=== PATIENT | male | born 1985 | race American Indian/Alaskan Native ===

== ENCOUNTER 2018-01-19 16:27 | Emergency (ER) | payer SELFPAY ==
[2018-01-19] MEDS ORDERED: HALDOL IM STA (17:00)
--- NOTE | 2018-01-19 17:02 | Emergency Department Report ---
ED General Adult HPI - General Chief complaint: Abdominal Pain Stated complaint: ABD PAIN Time Seen by Provider: 01/19/18 16:59 Source: patient, RN notes reviewed Mode of arrival: Ambulatory Limitations: No Limitations - History of Present Illness Initial comments: This is a 33-year-old male. The patient is not known to this provider previously. He reports a past medical history of HIV, indicates he is not on highly active antiretroviral therapy secondary to medication insurance issues, does not know CD4 count, does not know viral load, believes that he also has a history of GERD, gastritis, possible irritable bowel syndrome He presents to the ER with sharp stabbing epigastric pain that radiates down to his bilateral lower quadrants. Started a few hours ago. It is constant. It increases with palpation. It decreases with rest. There is nausea, there is no testicular pain, no urinary symptoms. There is no hematemesis of bright red blood per rectum. There is no chest pain. There is no shortness of breath. -: Gradual Location: abdomen Radiation: abdomen, periumbillical Quality: burning, stabbing, aching Consistency: constant Improves with: medication Worsens with: movement Associated Symptoms: loss of appetite, malaise, nausea/vomiting, weakness. denies: confusion, chest pain, cough, diaphoresis, fever/chills, headaches, rash , seizure, shortness of breath, syncope - Related Data Previous Rx's Medication Instructions Recorded Last Taken Type Acetaminophen [Tylenol Arthritis] 650 mg PO Q6HR PRN #30 tablet.er 01/19/18 Unknown Rx Dicyclomine [Bentyl] 10 mg PO QID PRN #20 capsule 01/19/18 Unknown Rx Ondansetron [Zofran Odt] 4 mg PO Q8HR PRN #20 tab.rapdis 01/19/18 Unknown Rx Promethazine [Phenergan SUPPOS] 50 mg RI Q6H PRN #20 supp.rect 01/19/18 Unknown Rx Allergies Allergy/AdvReac Type Severity Reaction Status Date / Time morphine Allergy Hives Verified 01/19/18 16:31 ED Review of Systems ROS: Stated complaint: ABD PAIN Other details as noted in HPI Comment: All other systems reviewed and negative ED Past Medical Hx - Past Medical History Additional medical history: peptic ulcer. IBS - Surgical History Past Surgical History?: No - Social History Smoking Status: Never Smoker Substance Use Type: None - Medications Home Medications: Home Medications Medication Instructions Recorded Confirmed Last Taken Type Acetaminophen [Tylenol Arthritis] 650 mg PO Q6HR PRN #30 tablet.er 01/19/18 Unknown Rx Dicyclomine [Bentyl] 10 mg PO QID PRN #20 capsule 01/19/18 Unknown Rx Ondansetron [Zofran Odt] 4 mg PO Q8HR PRN #20 tab.rapdis 01/19/18 Unknown Rx Promethazine [Phenergan SUPPOS] 50 mg RI Q6H PRN #20 supp.rect 01/19/18 Unknown Rx ED Physical Exam - General Limitations: No Limitations General appearance: alert, in distress - Head Head exam: Present: atraumatic, normocephalic - Eye Eye exam: Present: normal appearance, EOMI. Absent: nystagmus - ENT ENT exam: Present: normal exam, normal orophraynx, mucous membranes moist, normal external ear exam - Neck Neck exam: Present: normal inspection, full ROM - Respiratory Respiratory exam: Present: normal lung sounds bilaterally. Absent: respiratory distress - Cardiovascular Cardiovascular Exam: Present: regular rate, normal rhythm, normal heart sounds. Absent: bradycardia, tachycardia, irregular rhythm, systolic murmur, diastolic murmur, rubs, gallop - GI/Abdominal GI/Abdominal exam: Present: soft, tenderness, normal bowel sounds, other (there is epigastric tenderness. There is lower abdominal tenderness.). Absent: distended, guarding, rebound, rigid, pulsatile mass - Rectal Rectal exam: Present: normal inspection (escorted by nurse Nieves Frazier) - exam: Present: normal inspection, other (there is no testicular tenderness. There is normal testicular lie bilaterally. There is normal cremasteric reflex bilaterally.). Absent: testicular tenderness External exam: Present: normal external exam, other (escorted by nurse Nieves Frazier) - Extremities Exam Extremities exam: Present: normal inspection, full ROM, normal capillary refill. Absent: pedal edema, joint swelling, calf tenderness - Back Exam Back exam: Present: normal inspection, full ROM. Absent: tenderness, CVA tenderness (R), paraspinal tenderness, vertebral tenderness - Neurological Exam Neurological exam: Present: alert, oriented X3, CN II-XII intact, other ( Extraocular movements intact. Tongue midline. No facial droop. Facial sensation intact to light touch in the V1, V2, V3 distribution bilaterally. 5 and 5 strength in 4 extremities.. Sensation is intact to light touch in 4 extremities.). Absent: motor sensory deficit - Psychiatric Psychiatric exam: Present: anxious - Skin Skin exam: Present: warm, dry, intact, normal color. Absent: rash ED Course Vital Signs 01/19/18 01/19/18 16:31 19:01 Temperature 99 F Pulse Rate 70 86 Respiratory 22 16 Rate Blood Pressure 135/91 Blood Pressure 135/96 [Left] O2 Sat by Pulse 98 99 Oximetry - Reevaluation(s) Reevaluation #1: 01/19/18 19:10 Differential diagnosis, including but not limited to: GERD, gastritis, cyclic vomiting syndrome, pancreatitis, perforated viscus, irritable bowel syndrome Assessment and plan: 33-year-old male, HIV positive, reports IBS, diffuse abdominal pain, no historical features to suggest cannabinoid hyperemesis syndrome or narcotic bowel syndrome. Reports he gets hives and itching with morphine, but denies history of anaphylactic or anaphylactoid reactions. He will be treated with Haldol for his pain, hydromorphone, lidocaine, we will check basic laboratory studies, CAT scan, give nausea medicine, reassess. Reevaluation #2: 01/19/18 19:[address] scan negative for acute surgical disease. Patient will be discharged with nonnarcotic pain medication, nausea medication, instructions to follow up with outpatient gastroenterology, as well as infectious disease. Reevaluation #3: 01/19/18 19:56 Belly soft on repeat exam. Patient feels improved. Tolerating liquids. Patient will be discharged. ED Medical Decision Making - Lab Data Result diagrams: 01/19/18 17:32 01/19/18 17:32 Vital Signs 01/19/18 01/19/18 16:31 19:01 Temperature 99 F Pulse Rate 70 86 Respiratory 22 16 Rate Blood Pressure 135/91 Blood Pressure 135/96 [Left] O2 Sat by Pulse 98 99 Oximetry Lab Results 01/19/18 01/19/18 01/19/18 Range/Units 17:32 17:32 18:41 WBC 9.0 (4.5-11.0) K/mm3 RBC 5.76 H (3.65-5.03) M/mm3 Hgb 14.1 (11.8-15.2) gm/dl Hct 44.2 (35.5-45.6) % MCV 77 L (84-94) fl MCH 25 L (28-32) pg MCHC 32 (32-34) % RDW 15.7 H (13.2-15.2) % Plt Count 216 (140-440) K/mm3 Sodium 143 (137-145) mmol/L Potassium 4.0 (3.6-5.0) mmol/L Chloride 101.4 (98-107) mmol/L Carbon Dioxide 29 (22-30) mmol/L Anion Gap 17 mmol/L BUN 11 (9-20) mg/dL Creatinine 1.1 (0.8-1.5) mg/dL Estimated GFR > 60 ml/min BUN/Creatinine Ratio 10 % Glucose 113 H (75-100) mg/dL Calcium 9.7 (8.4-10.2) mg/dL Total Bilirubin 0.40 (0.1-1.2) mg/dL AST 30 (5-40) units/L ALT 23 (7-56) units/L Alkaline Phosphatase 63 (35-129) units/L Total Protein 8.2 (6.3-8.2) g/dL Albumin 4.5 (3.9-5) g/dL Albumin/Globulin Ratio 1.2 % Lipase 22 (13-60) units/L Urine Bilirubin Neg (Negative) Urine RBC (Auto) 1.0 (0.0-6.0) /HPF - EKG Data -: EKG Interpreted by Me EKG shows normal: sinus rhythm, axis, intervals, QRS complexes, ST-T waves Rate: normal - EKG Data When compared to previous EKG there are: previous EKG unavailable Interpretation: normal EKG 01/19/18 19:12 Sinus, 74 bpm, normal axis, normal intervals, high left ventricular voltage, incomplete right bundle branch block, abnormal EKG, not a stemi - Radiology Data Radiology results: report reviewed, image reviewed interpreted by me: X-ray of the chest is negative for acute disease Print Report Referring Physician: NETTE FRAUSTO Patient Name: RHONDA ALEXIS Date of : 1985 Sex: Male Report Date: 2018-01-19 Report Status: Finalized Findings [facility] [address] [place] [address] Cat Scan Report Signed Patient: RHONDA ALEXIS MR#: [id number] : 1985 Acct:[id number] Age/Sex: 33 / M ADM Date: 01/19/18 Loc: ED Attending Dr: Ordering Physician: NETTE FRAUSTO MD Date of Service: 01/19/18 Procedure(s): CT abdomen pelvis w con Accession Number(s): [id number] cc: NETTE FRAUSTO MD FINAL REPORT EXAM: CT ABDOMEN PELVIS W CON HISTORY: abd pain n/v COMPARISON: None available. TECHNIQUE: Contiguous axial images were obtained. Additional sagittal and coronal reformatted images were obtained. Administration of IV contrast given per institution protocol. Images submitted for interpretation. 100 cc Omnipaque 300. FINDINGS: Lung bases are clear. Exam is somewhat limited by patient motion through the upper to mid abdomen. Liver, spleen, pancreas and adrenal glands are grossly unremarkable. No calcified gallstones or biliary dilatation. No solid renal lesion or hydronephrosis. No perinephric fat stranding. Aorta and IVC are normal in caliber. Urinary bladder and prostate gland are grossly unremarkable. No free fluid or lymphadenopathy in the pelvic cavity. Moderate stool within the majority the colon. Partial visualization of the appendix measuring 5 millimeters in diameter (series 2, image 124). Visualized portions the appendix normal in caliber. There is several fluid-filled small bowel loops in the pelvis concerning for mild enteritis given the patient's history. No bowel obstruction. Lumbar vertebral body heights are preserved. Bony pelvis is grossly intact. IMPRESSION: Findings concerning for mild enteritis. Several fluid-filled small bowel loops in the pelvis. No bowel obstruction. Moderate stool within the majority the colon. Visualized portions the appendix are normal in caliber. No other gross acute findings. Transcribed By: LMA Dictated By: SHAMIR GERONIMO MD Electronically Authenticated By: SHAMIR GERONIMO MD Signed Date/Time: 01/19/181936 Critical care attestation.: If time is entered above; I have spent that time in minutes in the direct care of this critically ill patient, excluding procedure time. ED Disposition Clinical Impression: Abdominal pain Qualifiers: Abdominal location: unspecified location Qualified Code(s): R10.9 - Unspecified abdominal pain Disposition: DC-01 TO HOME OR SELFCARE Is pt being admited?: No Does the pt Need Aspirin: No Condition: Good Instructions: Gastroenteritis (ED) Additional Instructions: Advance diet as tolerated. Start with gentle liquids, soup, bread, rice, apples , toast. Take pain medication, nausea medication as needed/directed. Follow up with the primary care doctor within the next 7 days. Follow up with a local infectious disease doctor, such as Dr. Jaramillo, or the local health department to resume your HIV medications. Return to the ER right away with new pain, worsened pain, migration of pain, fevers, chills, lethargy, irritability, vomiting, change in mental status, confusion, inability to tolerate liquid feeds. Prescriptions: Acetaminophen [Tylenol Arthritis] 650 mg PO Q6HR PRN #30 tablet.er PRN Reason: Pain Dicyclomine [Bentyl] 10 mg PO QID PRN #20 capsule PRN Reason: Pain Ondansetron [Zofran Odt] 4 mg PO Q8HR PRN #20 tab.rapdis PRN Reason: Nausea Promethazine [Phenergan SUPPOS] 50 mg RI Q6H PRN #20 supp.rect PRN Reason: Nausea Referrals: PRIMARY CARE, [Primary Care Provider] - 3-5 Days TIM KNOX MD [Staff Physician] - 3-5 Days CAILIN REARDON MD [Staff Physician] - 3-5 Days DARIEN PEDRO MD [Staff Physician] - 3-[address] [facility] [Outside] - 3-5 Days
[2018-01-19] MEDS ORDERED: ZOFRAN IV ONE (17:47)
[2018-01-19] MEDS ORDERED: XYLOCAINE CARDIAC IV ONE (17:47)
[2018-01-19] MEDS ORDERED: DILAUDID IV ONE (17:47)
[2018-01-19] MEDS ORDERED: NACL 0.9% 1000 ML 1,000 ML IV ONE (17:47)
[2018-01-19 17:49] LABS: Hematocrit 44.2 % (35.5-45.6); Hemoglobin 14.1 gm/dl (11.8-15.2); Mean Corpuscular HGB Conc 32 % (32-34); Mean Corpuscular Volume 77 fl (84-94); Platelet Count 216 K/mm3 (140-440); Red Blood Count 5.76 M/mm3 (3.65-5.03); Red Cell Distribution Width 15.7 % (13.2-15.2)
[2018-01-19 17:55] LABS: Mean Corpuscular Hemoglobin 25 pg (28-32)
[2018-01-19 18:05] LABS: Alanine Aminotransferase 23 units/L (7-56); Albumin 4.5 g/dL (3.9-5); BUN/Creatinine Ratio 10; Blood Urea Nitrogen 11 mg/dL (9-20); Calcium 9.7 mg/dL (8.4-10.2); Hemolysis Index 0; Lipase 22 units/L (13-60)
[2018-01-19 19:02] VITALS: BP 135/96
[2018-01-19 19:04] LABS: Bilirubin,Urine NEG (Negative); Blood,Urine NEG (Negative); Color,Urine Yellow (Yellow); Mucus,Urine FEW /HPF; Protein,Urine <15 mg/dL mg/dL (Negative)
--- NOTE | 2018-01-19 19:19 | XRay Report ---
FINAL REPORT EXAM: XR CHEST ROUTINE 2V HISTORY: epigastric pain n/v COMPARISON: None available. FINDINGS:: Frontal and lateral views of the chest obtained. Cardiac silhouette is within normal limits. No focal consolidation or effusion. No pneumothorax. Visualized bony thorax is grossly intact. IMPRESSION:: No acute findings.
--- NOTE | 2018-01-19 19:41 | Cat Scan Report ---
FINAL REPORT EXAM: CT ABDOMEN PELVIS W CON HISTORY: abd pain n/v COMPARISON: None available. TECHNIQUE: Contiguous axial images were obtained. Additional sagittal and coronal reformatted images were obtained. Administration of IV contrast given per institution protocol. Images submitted for interpretation. 100 cc Omnipaque 300. FINDINGS: Lung bases are clear. Exam is somewhat limited by patient motion through the upper to mid abdomen. Liver, spleen, pancreas and adrenal glands are grossly unremarkable. No calcified gallstones or biliary dilatation. No solid renal lesion or hydronephrosis. No perinephric fat stranding. Aorta and IVC are normal in caliber. Urinary bladder and prostate gland are grossly unremarkable. No free fluid or lymphadenopathy in the pelvic cavity. Moderate stool within the majority the colon. Partial visualization of the appendix measuring 5 millimeters in diameter (series 2, image 124). Visualized portions the appendix normal in caliber. There is several fluid-filled small bowel loops in the pelvis concerning for mild enteritis given the patient's history. No bowel obstruction. Lumbar vertebral body heights are preserved. Bony pelvis is grossly intact. IMPRESSION: Findings concerning for mild enteritis. Several fluid-filled small bowel loops in the pelvis. No bowel obstruction. Moderate stool within the majority the colon. Visualized portions the appendix are normal in caliber. No other gross acute findings.
== END 2018-01-19 20:18 | disposition home or self-care (01) ==
LOC: ED 16:27
DX: R10.13 Epigastric pain (principal); R63.0 Anorexia; R10.33 Periumbilical pain; R11.2 Nausea with vomiting, unspecified; R53.1 Weakness; Z88.5 Allergy status to narcotic agent
CPT/HCPCS: 36415; 71046; 74177; 80053; 81001; 83690; 85027; 93005; 93010; 96361; 96372; 96374; 96375; 99284; J1170; J1630; J2001; J2405; J7030; Q9967

== ENCOUNTER 2021-02-08 13:31 | Emergency (ER) | payer SELFPAY ==
[2021-02-08] MEDS ORDERED: HYDROmorphone 2 MG/1 ML INJ ONE (13:48)
[2021-02-08] MEDS ORDERED: diphenhydrAMINE 50 MG/ML VIAL IV ONE (13:50)
[2021-02-08] MEDS ORDERED: HALOPERIDOL LACTATE 5 MG/1 ML INJ IM STA (13:50)
[2021-02-08] MEDS ORDERED: LACTATED RINGERS 1,000 ML IV ONE (13:51)
[2021-02-08] MEDS ORDERED: LORazepam 2 MG/ML VIAL IV STA (13:51)
--- NOTE | 2021-02-08 13:53 | Emergency Department Report ---
<NETTE FRAUSTO - Last Filed: 02/08/21 15:56> ED General Adult HPI - General Chief complaint: Abdominal Pain Stated complaint: ABD PAIN PUI?: No Time Seen by Provider: 02/08/21 13:48 Source: patient, RN notes reviewed, old records reviewed Mode of arrival: Wheelchair Limitations: No Limitations, Physical Limitation - History of Present Illness Initial comments: The patient is a 36-year-old gentleman. I have evaluated this patient in the past. When I previously saw him in 2018, he presented for abdominal pain, and was presumptively diagnosed with cannabinoid hyperemesis syndrome and/or narcotic bowel syndrome. The patient presents to the ER today with a complaint of diffuse crampy sharp abdominal pain. He has nausea but no vomiting. Patient makes no complaint of fever, headache, neck pain, chest pain, shortness of breath or urinary symptoms. The patient is acutely distressed and agitated. He indicates this feels similar to his prior episode of pain when I saw him a few years ago. He felt improved with haloperidol, Ativan, Benadryl, and subsequently Valium. -: Gradual Location: abdomen Severity scale (0 -10): 10 Consistency: constant Improves with: medication Worsens with: movement - Related Data Previous Rx's Medication Instructions Recorded Last Taken Type Acetaminophen [Tylenol Arthritis] 650 mg PO Q6HR PRN #30 tablet.er 01/19/18 Unknown Rx Dicyclomine [Bentyl] 10 mg PO QID PRN #20 capsule 01/19/18 Unknown Rx Ondansetron [Zofran Odt] 4 mg PO Q8HR PRN #20 tab.rapdis 01/19/18 Unknown Rx Acetaminophen [Non-Aspirin Extra 500 mg PO Q6HR PRN #30 tablet 02/08/21 Unknown Rx Strength] Jennifer Root [Jennifer] 250 mg PO QID PRN #30 capsule 02/08/21 Unknown Rx Metoclopramide [Reglan] 10 mg PO QID PRN #30 tablet 02/08/21 Unknown Rx Promethazine [Phenergan SUPPOS] 50 mg NE Q6H PRN #20 supp.rect 02/08/21 Unknown Rx Allergies Allergy/AdvReac Type Severity Reaction Status Date / Time morphine Allergy Hives Verified 01/19/18 16:31 ED Review of Systems Constitutional: denies: fever Eyes: denies: eye discharge ENT: denies: epistaxis Respiratory: denies: cough Cardiovascular: denies: chest pain Gastrointestinal: abdominal pain, nausea Genitourinary: denies: dysuria, frequency Psychiatric: anxiety ED Past Medical Hx - Past Medical History Previous Medical History?: Yes Additional medical history: peptic ulcer. IBS - Surgical History Past Surgical History?: No - Social History Smoking Status: Never Smoker Substance Use Type: None - Medications Home Medications: Home Medications Medication Instructions Recorded Confirmed Last Taken Type Acetaminophen [Tylenol Arthritis] 650 mg PO Q6HR PRN #30 tablet.er 01/19/18 Unknown Rx Dicyclomine [Bentyl] 10 mg PO QID PRN #20 capsule 01/19/18 Unknown Rx Ondansetron [Zofran Odt] 4 mg PO Q8HR PRN #20 tab.rapdis 01/19/18 Unknown Rx Acetaminophen [Non-Aspirin Extra 500 mg PO Q6HR PRN #30 tablet 02/08/21 Unknown Rx Strength] Jennifer Root [Jennifer] 250 mg PO QID PRN #30 capsule 02/08/21 Unknown Rx Metoclopramide [Reglan] 10 mg PO QID PRN #30 tablet 02/08/21 Unknown Rx Promethazine [Phenergan SUPPOS] 50 mg NE Q6H PRN #20 supp.rect 02/08/21 Unknown Rx ED Physical Exam - General Limitations: No Limitations General appearance: alert, anxious, in distress - Head Head exam: Present: atraumatic, normocephalic - Eye Eye exam: Present: normal appearance, EOMI. Absent: nystagmus - ENT ENT exam: Present: normal exam, normal orophraynx, mucous membranes moist, normal external ear exam - Neck Neck exam: Present: normal inspection, full ROM. Absent: tenderness, meningismus - Respiratory Respiratory exam: Present: normal lung sounds bilaterally, accessory muscle use. Absent: respiratory distress, wheezes, rales, rhonchi, stridor - Cardiovascular Cardiovascular Exam: Present: regular rate, normal rhythm, normal heart sounds. Absent: bradycardia, tachycardia, irregular rhythm, systolic murmur, diastolic murmur, rubs, gallop - GI/Abdominal GI/Abdominal exam: Present: soft, tenderness, other (The patient flexes his abdominal musculature when he is examined.). Absent: distended, guarding, rebound, rigid, pulsatile mass - Rectal Rectal exam: Present: deferred - Extremities Exam Extremities exam: Present: normal inspection, full ROM, other (2+ pulses noted in the bilateral upper and lower extremities. There is no palpable cord. negative Homans sign. Muscular compartments are soft. The pelvis is stable.). Absent: pedal edema, calf tenderness - Back Exam Back exam: Present: normal inspection, full ROM. Absent: tenderness, CVA tenderness (R), CVA tenderness (L), paraspinal tenderness, vertebral tenderness - Neurological Exam Neurological exam: Present: alert, other (No facial droop. Tongue midline. Extraocular movements intact bilaterally. Facial sensation intact to light touch in V1, V2, V3 distribution bilaterally. 5 and a 5 strength in 4 e xtremities. Sensation intact to light touch in 4 extremities.). Absent: motor sensory deficit - Psychiatric Psychiatric exam: Present: anxious - Skin Skin exam: Present: warm, dry, intact, normal color. Absent: rash ED Course - Reevaluation(s) Reevaluation #1: 02/08/21 14:42 Differential diagnosis, including but not limited to: Cannabinoid hyperemesis syndrome, cyclic vomiting syndrome, narcotic bowel syndrome, dehydration, renal colic, colitis, diverticulitis, appendicitis Assessment and plan: 36-year-old gentleman, who was afebrile with reassuring vital signs with exception of hypertension, likely secondary to pain, stress and anxiety, who is likely presenting with recurrence of a previous episode of abdominal pain, highly suspicious for cannabinoid hyperemesis syndrome and/or narcotic bowel syndrome. We will medicate patient with haloperidol, Ativan, Benadryl, and subsequently Valium. IV fluids ordered, appropriate laboratory studies ordered, CT scan of the abdomen pelvis ordered. Reassess after initial data points. Reevaluation #2: 02/08/21 14:52 After Valium. The patient is resting comfortably. Blood pressure 120 systolic. Laboratory studies, CT scan abdomen pelvis pending. 02/08/21 15:33 Patient resting comfortably on stretcher. He is in no acute distress. Care be transferred to the oncoming ER physician, to follow-up on laboratory studies, urinalysis, EKG, CT scan of the abdomen pelvis. If no acute findings, would consider this patient suitable for discharge with outpatient follow-up. 02/08/21 15:56 EKG unremarkable. Elevated CK reviewed and appreciated. Patient will be given IV fluids. Given young age, normal renal function, this should decrease on its own with rest, and copious oral hydration. She will be transferred to the oncoming ER physician to follow-up on repeat vi regine signs, urinalysis, and CT scan of the abdomen pelvis ED Medical Decision Making - Lab Data Result diagrams: 02/08/21 14:44 02/08/21 14:44 Vital Signs 02/08/21 13:38 Temperature 98.1 F Pulse Rate 78 Respiratory 36 H Rate Blood Pressure 193/149 [Right] O2 Sat by Pulse 97 Oximetry - EKG Data -: EKG Interpreted by Hi EKG shows normal: sinus rhythm Rate: normal - EKG Data 02/08/21 15:39 EKG interpreted at 15: 37 Sinus rhythm, 83 bpm. Normal axis, normal intervals, high left ventricular voltage. Minimal motion artifact. Not a STEMI. - Radiology Data Radiology results: report reviewed, image reviewed [facility] [address] [place] [address] Cat Scan Report Signed Patient: RHONDA ALEXIS MR #: [id number] : 1985 Acct:[id number] Age/Sex: 33 / M ADM Date: 01/19/18 Loc: ED Attending Dr: Ordering Physician: NETTE FRAUSTO MD Date of Service: Procedure(s): CT abdomen pelvis w con Accession Number(s): [id number] cc: NETTE FRAUSTO MD FINAL REPORT EXAM: CT ABDOMEN PELVIS W CON HISTORY: abd pain n/v COMPARISON: None available. TECHNIQUE: Contiguous axial images were obtained. Additional sagittal and coronal reformatted images were obtained. Administration of IV contrast given per institution protocol. Images submitted for interpretation. 100 cc Omnipaque 300. FINDINGS: Lung bases are clear. Exam is somewhat limited by patient motion through the upper to mid abdomen. Liver, spleen, pancreas and adrenal glands are grossly unremarkable. No calcified gallstones or biliary dilatation. No solid renal lesion or hydronephrosis. No perinephric fat stranding. Aorta and IVC are normal in caliber. Urinary bladder and prostate gland are grossly unremarkable. No free fluid or lymphadenopathy in the pelvic cavity. Moderate stool within the majority the colon. Partial visualization of the appendix measuring 5 millimeters in diameter (series 2, image 124). Visualized portions the appendix normal in caliber. There is several fluid-filled small bowel loops in the pelvis concerning for mild enteritis given the patient's history. No bowel obstruction. Lumbar vertebral body heights are preserved. Bony pelvis is grossly intact. IMPRESSION: Findings concerning for mild enteritis. Several fluid-filled small bowel loops in the pelvis. No bowel obstruction. Moderate stool within the majority the colon. Visualized portions the appendix are normal in caliber. No other gross acute findings. Transcribed By: LMRiley Dictated By: SHAMIR GERONIMO MD Electronically Authenticated By: SHAMIR GERONIMO MD Signed Date/Time: 01/19/181936 DD/ 36 TD/TT: 01/19/181936 ED Disposition Clinical Impression: Acute abdominal pain, Elevated CK Disposition: - TO HOME OR SELFCARE Is pt being admited?: No Does the pt Need Aspirin: No Condition: Good Instructions: Abdominal Pain, Adult Additional Instructions: Please take the pain medication, nausea medication as needed and directed. Minimize/avoid consumption of Motrin, ibuprofen, Naprosyn, Aleve. Avoid consumption of alcohol, tobacco, smoke products. Avoid consumption exposure of marijuana, and cannabis-containing products. We suspect that the patient may have cannabinoid hyperemesis syndrome. Treatment is to discontinue marijuana consumption, and to avoid marijuana consumption/exposure. We recommend follow-up with a primary care doctor within 2 to 4 days for repeat checkup and evaluation. The patient is to drink at least 6 cups of water per day, rest, avoid heavy lifting, and the patient should have repeat laboratory testing to check on elevated CK level, which is a muscle protein that can become elevated with periods of muscle contraction and strenuous physical activity. Please have a primary care doctor or GI physician contact the medical records department to obtain copies of laboratory studies, radiology studies, and follow-up on nonemergent incidental abnormal findings, if any. Do not take in for medication for the next 2 days, if patient takes this medication. [facility] is a local medical primary care clinic. [facility] is a local GI clinic. Please return to the emergency room right away with new pain, worsened pain, migration of pain, projectile vomiting, change in mental status, confusion, inability to tolerate liquid feeds, new, worsened or different symptoms not present on initial emergency room evaluation. Prescriptions: Jennifer Root [Jennifer] 250 mg PO QID PRN #30 capsule PRN Reason: Nausea Acetaminophen [Non-Aspirin Extra Strength] 500 mg PO Q6HR PRN #30 tablet PRN Reason: Pain , Severe (7-10) Promethazine [Phenergan SUPPOS] 50 mg NE Q6H PRN #20 supp.rect PRN Reason: Nausea Metoclopramide [Reglan] 10 mg PO QID PRN #30 tablet PRN Reason: Nausea Referrals: [facility] [Provider Group] - 3-5 Days [facility] [Provider Group] - 3-5 Days <KATHARINA VASQUEZ - Last Filed: 02/08/21 18:50> ED Review of Systems ROS: Stated complaint: ABD PAIN Other details as noted in HPI ED Course Vital Signs 02/08/21 02/08/21 02/08/21 13:38 14:30 14:45 Temperature 98.1 F Pulse Rate 78 78 74 Respiratory 36 H 18 17 Rate Blood Pressure 126/86 Blood Pressure 193/149 [Right] O2 Sat by Pulse 97 100 Oximetry 02/08/21 02/08/21 02/08/21 15:00 15:16 15:30 Temperature Pulse Rate 83 83 69 Respiratory 22 20 17 Rate Blood Pressure 126/86 126/79 125/85 Blood Pressure [Right] O2 Sat by Pulse 99 99 99 Oximetry 02/08/21 02/08/21 02/08/21 15:45 16:08 16:16 Temperature Pulse Rate 75 102 H 88 Respiratory 20 17 19 Rate Blood Pressure 110/70 110/70 110/70 Blood Pressure [Right] O2 Sat by Pulse 98 97 98 Oximetry 02/08/21 02/08/21 02/08/21 16:30 16:46 17:49 Temperature Pulse Rate 92 H 100 H Respiratory 21 16 Rate Blood Pressure 119/75 113/70 110/70 Blood Pressure [Right] O2 Sat by Pulse 89 99 97 Oximetry ED Medical Decision Making - Lab Data Result diagrams: 02/08/21 14:44 02/08/21 14:44 - Radiology Data CT ABDOMEN AND PELVIS WITH CONTRAST INDICATION / CLINICAL INFORMATION: Unspecified acute abdominal pain. TECHNIQUE: Axial CT images were obtained through the abdomen and pelvis after 100 cc Omni [address] scans at this location are performed using CT dose reduction for ALARA by means of automated exposure control. COMPARISON: CT abdomen and pelvis with contrast from 01/19/2018. FINDINGS: LOWER CHEST: No significant abnormality. LIVER: No significant abnormality. GALLBLADDER: No significant abnormality. BILE DUCTS: No significant abnormality. PANCREAS: No significant abnormality. SPLEEN: No significant abnormality. ADRENALS: No significant abnormality. RIGHT KIDNEY / URETER: No significant abnormality. LEFT KIDNEY / URETER: No significant abnormality. STOMACH / SMALL BOWEL: No significant abnormality. COLON: No sign ificant abnormality. APPENDIX: No significant abnormality. PERITONEUM: No free fluid. No free air. No fluid collection. LYMPH NODES: No significant adenopathy. AORTA / ARTERIES: No significant abnormality. IVC / VEINS: No significant abnormality. URINARY BLADDER: No significant abnormality. REPRODUCTIVE ORGANS: No significant abnormality. ADDITIONAL FINDINGS: None. SKELETAL SYSTEM: No significant abnormality. IMPRESSION: 1. No significant abnormality to explain the patient's abdominal pain. - Medical Decision Making This patient was signed out to me to follow-up on the patient's CT scan of the abdomen and pelvis, his urinalysis, and to monitor him as he comes out of the sedating medications that he was given earlier in his ED course. CT scan of the abdomen pelvis does not show any acute process or etiology of the patient's presenting symptoms. Urinalysis does not show any urinary tract infection and just has 20 ketones consistent with some mild dehydration from his nausea with vomiting. The patient was monitored for almost 3 hours after my shift began. He is easily arousable. Patient was able to stand up and leave a urine sample. The patient still is a little sleepy, but his mother is currently at bedside and both of his parents are here to make sure that he gets home and they will monitor him. I told mom that we could continue to monitor him in the emergency department, but she declined and says that she wants to make sure that he gets home, and his father will bring him back tomorrow to get his car. Prescriptions and outpatient referrals were given by my colleague for discharge. Apparently the patient has a primary care physician and tool distributor through [facility] so they were encouraged to follow-up with them for continuity of care and for further evaluation. Critical Care Time: No Critical care attestation.: If time is entered above; I have spent that time in minutes in the direct care of this critically ill patient, excluding procedure time. ED Disposition Is pt being admited?: No
[2021-02-08] MEDS ORDERED: diazePAM 10 MG/2 ML SYRINGE IV ONE (14:18)
[2021-02-08 15:21] LABS: Hematocrit 42.7 % (35.5-45.6); Hemoglobin 13.8 gm/dl (11.8-15.2)
[2021-02-08 15:34] LABS: BUN/Creatinine Ratio 15; Blood Urea Nitrogen 17 mg/dL (9-20); Calcium 9.3 mg/dL (8.4-10.2); Hemolysis Index 9
[2021-02-08] MEDS ORDERED: LACTATED RINGERS 2,000 ML IV ONE (15:54)
--- NOTE | 2021-02-08 16:35 | Cat Scan Report ---
CT ABDOMEN AND PELVIS WITH CONTRAST INDICATION / CLINICAL INFORMATION: Unspecified acute abdominal pain. TECHNIQUE: Axial CT images were obtained through the abdomen and pelvis after 100 cc Omni [address] scans at this location are performed using CT dose reduction for ALARA by means of automated expos ure control. COMPARISON: CT abdomen and pelvis with contrast from 01/19/2018. FINDINGS: LOWER CHEST: No significant abnormality. LIVER: No significant abnormality. GALLBLADDER: No significant abnormality. BILE DUCTS: No significant abnormality. PANCREAS: No significant abnormality. SPLEEN: No significant abnormality. ADRENALS: No significant abnormality. RIGHT KIDNEY / URETER: No significant abnormality. LEFT KIDNEY / URETER: No significant abnormality. STOMACH / SMALL BOWEL: No significant abnormality. COLON: No significant abnormality. APPENDIX: No significant abnormality. PERITONEUM: No free fluid. No free air. No fluid collection. LYMPH NODES: No significant adenopathy. AORTA / ARTERIES: No significant abnormality. IVC / VEINS: No significant abnormality. URINARY BLADDER: No significant abnormality. REPRODUCTIVE ORGANS: No significant abnormality. ADDITIONAL FINDINGS: None. SKELETAL SYSTEM: No significant abnormality. IMPRESSION: 1. No significant abnormality to explain the patient's abdominal pain. Signer Name: Blaine Santillan MD Signed: 02/08/2021 4:30 PM Workstation Name: [id number]
[2021-02-08 18:38] LABS: Amorphous Crystals,Urine Few; Bilirubin,Urine NEG (Negative); Blood,Urine NEG (Negative); Color,Urine Yellow (Yellow); Mucus,Urine FEW /HPF; Urobilinogen,Urine < 2.0 mg/dL (<2.0)
[2021-02-08 18:55] VITALS: BP 141/103
--- NOTE | 2021-02-09 10:46 | Electrocardiograph Report ---
[facility] Test Date: 2021-02-08 Test Time: 15:37:25 Pat Name: RHONDA ALEXIS Department: Room: Gender: M [employer] Consultant: CLT : 1985 Requested By: NETTE FRAUSTO Order Number: [id number] Reading MD: Davon Roldan Measurements Intervals [place] Rate: 83 P: 79 VT: 175 QRS: 71 QRSD: 81 T: 64 QT: 360 QTc: 424 Interpretive Statements Sinus rhythm ST elev, probable normal early repol pattern No previous ECG available for comparison Electronically Signed On 02-09-2021 10:46:26 EDT by Davon Roldan
== END 2021-02-08 18:56 | disposition home or self-care (01) ==
LOC: ED 13:31
DX: R10.84 Generalized abdominal pain (principal); R74.8 Abnormal levels of other serum enzymes; Z88.5 Allergy status to narcotic agent; Z79.899 Other long term (current) drug therapy
CPT/HCPCS: 36415; 74177; 80048; 81001; 82550; 83735; 85014; 85018; 85049; 93005; 96361; 96372; 96374; 96375; 99284; J1200; J1630; J2060; J3360; J7120; Q9967; J1170